=== PATIENT | male | born 1980 | race African-American/Black ===

== ENCOUNTER 2020-10-29 05:48 | Inpatient (IN) ==
[2020-10-29] MEDS ORDERED: ACETAMINOPHEN 325 MG TABLET PO PRN (08:56)
[2020-10-29] MEDS ORDERED: ONDANSETRON 4 MG/2 ML VIAL IV PRN (08:56)
[2020-10-29] MEDS ORDERED: ALBUTEROL 2.5 MG/3 ML NEB RESP TX PRN (08:56)
[2020-10-29] MEDS ORDERED: DEXTROSE 50% 25 GM/50 ML VIAL IV PRN (08:56)
[2020-10-29] MEDS ORDERED: DOCUSATE SODIUM 100 MG CAPSULE PO PRN (08:56)
[2020-10-29] MEDS ORDERED: GLUCAGON 1 MG VIAL IM PRN (08:56)
[2020-10-29 09:39] LABS: Basophils # 0.1 10*3/uL (0.0-0.2); Basophils % 0.5 % (0.0-0.8); Eosinophils # 0.3 10*3/uL (0.0-0.87); Eosinophils % 2.1 % (0.00-10.9); Hematocrit 43.3 VOL% (42.0-52.0); Hemoglobin 13.4 GM/DL (14.0-18.0); Immature Granulocytes % 0.5 %; Immature Granulocytes Absolute 0.06 #; Lymphocytes # 2.2 10*3/uL (1.4-4.0); Lymphocytes % 18.3 % (21.2-54.2); Mean Corpuscular HGB Conc 30.9 GM/DL (32-36); Mean Corpuscular Volume 99.5 FL (87-102); Mean Platelet Volume 12.5 FL (9.6-12.0); Monocytes % 8.4 % (1.7-12.7); Neutrophils % 70.2 % (38.7-73.9); Platelet Count 191 T/CUMM (130-400); Red Blood Count 4.35 MC/CUMM (3.8-5.5); Red Cell Distribution Width 12.7 % (9.3-17.3); White Blood Count 12.1 T/CUMM (4-12)
[2020-10-29 09:59] LABS: Albumin 3.4 G/DL (3.4-5.0); Bilirubin,Total 0.5 MG/DL (0.2-1.0); Calcium 9.9 MG/DL (8.5-10.1); Total Protein 8.3 G/DL (6.4-8.3)
[2020-10-29] MEDS: INSULIN GLARGINE 100 UNIT/ML SUBCUT SCH ×2 (10:01→22:00)
[2020-10-29] MEDS: PANTOPRAZOLE 40 MG TABLET PO SCH (10:01)
[2020-10-29] MEDS: SODIUM CHLORIDE 0.9% 1,000 ML IV SCH (10:06)
[2020-10-29] MEDS: ENOXAPARIN 40 MG/0.4 ML SYRINGE SUBCUT SCH (11:52)
[2020-10-29] MEDS: INSULIN LISPRO 100 UNIT/ML SUBCUT SCH ×3 (11:52→22:00)
[2020-10-29] MEDS: FLUCONAZOLE INJ 100 MG in IV BAG 1 EACH IV SCH (12:40)
[2020-10-29] MEDS: amLODIPine 10 MG TABLET PO SCH (13:40)
[2020-10-29] MEDS ORDERED: clonazePAM 0.5 MG TABLET PO PRN (14:35)
[2020-10-29] MEDS: BENZTROPINE 1 MG TABLET PO SCH (21:59)
[2020-10-29] MEDS: OMEGA 3 ACID ETHYL ESTERS 1 GM CAPSULE PO SCH (21:59)
[2020-10-29] MEDS: LITHIUM ER 300 MG TABLET PO SCH (21:59)
[2020-10-29] MEDS: HALOPERIDOL 5 MG TABLET PO SCH (22:00)
[2020-10-29] MEDS: CLOTRIMAZOLE 1% CREAM 15 GM TUBE TOP SCH (22:05)
[2020-10-30 05:58] LABS: Basophils % 0.4 % (0.0-0.8); Eosinophils # 0.3 10*3/uL (0.0-0.87); Eosinophils % 3.3 % (0.00-10.9); Hematocrit 38.5 VOL% (42.0-52.0); Hemoglobin 12.1 GM/DL (14.0-18.0); Immature Granulocytes % 0.4 %; Immature Granulocytes Absolute 0.04 #; Lymphocytes # 2.5 10*3/uL (1.4-4.0); Lymphocytes % 24.6 % (21.2-54.2); Mean Corpuscular HGB Conc 31.4 GM/DL (32-36); Mean Corpuscular Volume 96.7 FL (87-102); Mean Platelet Volume 12.8 FL (9.6-12.0); Monocytes % 7.2 % (1.7-12.7); Neutrophils % 64.1 % (38.7-73.9); Platelet Count 243 T/CUMM (130-400); Red Blood Count 3.98 MC/CUMM (3.8-5.5); Red Cell Distribution Width 12.3 % (9.3-17.3); White Blood Count 10.1 T/CUMM (4-12)
[2020-10-30 06:13] LABS: Calcium 9.3 MG/DL (8.5-10.1); Osmolality,Calculated 291.8 MOS/KG (273-304)
[2020-10-30] MEDS: SODIUM CHLORIDE 0.9% 1,000 ML IV SCH ×5 (06:33→20:47)
[2020-10-30] MEDS: amLODIPine 10 MG TABLET PO SCH (08:29)
[2020-10-30] MEDS: OMEGA 3 ACID ETHYL ESTERS 1 GM CAPSULE PO SCH ×2 (08:29→20:46)
[2020-10-30] MEDS: LITHIUM ER 300 MG TABLET PO SCH ×2 (08:29→20:47)
[2020-10-30] MEDS: PANTOPRAZOLE 40 MG TABLET PO SCH (08:29)
[2020-10-30] MEDS: HALOPERIDOL 5 MG TABLET PO SCH ×2 (08:29→20:47)
[2020-10-30] MEDS: BENZTROPINE 1 MG TABLET PO SCH ×2 (08:29→20:47)
[2020-10-30] MEDS: INSULIN LISPRO 100 UNIT/ML SUBCUT SCH ×4 (08:30→20:46)
[2020-10-30] MEDS: INSULIN GLARGINE 100 UNIT/ML SUBCUT SCH ×2 (08:30→20:45)
[2020-10-30] MEDS: CLOTRIMAZOLE 1% CREAM 15 GM TUBE TOP SCH (08:32)
[2020-10-30] MEDS: FLUCONAZOLE INJ 100 MG in IV BAG 1 EACH IV SCH (12:31)
[2020-10-30] MEDS: ENOXAPARIN 40 MG/0.4 ML SYRINGE SUBCUT SCH (12:31)
[2020-10-31] MEDS: CLOTRIMAZOLE 1% CREAM 15 GM TUBE TOP SCH ×2 (02:56→08:57)
[2020-10-31] MEDS: SODIUM CHLORIDE 0.9% 1,000 ML IV SCH ×2 (04:48→08:58)
[2020-10-31 06:41] LABS: Basophils % 0.4 % (0.0-0.8); Eosinophils # 0.3 10*3/uL (0.0-0.87); Eosinophils % 3.2 % (0.00-10.9); Hematocrit 35.6 VOL% (42.0-52.0); Hemoglobin 11.4 GM/DL (14.0-18.0); Immature Granulocytes % 0.6 %; Immature Granulocytes Absolute 0.06 #; Lymphocytes # 2.7 10*3/uL (1.4-4.0); Lymphocytes % 26.8 % (21.2-54.2); Mean Platelet Volume 11.9 FL (9.6-12.0); Monocytes % 8.2 % (1.7-12.7); Neutrophils % 60.8 % (38.7-73.9); Platelet Count 258 T/CUMM (130-400); Red Blood Count 3.67 MC/CUMM (3.8-5.5); Red Cell Distribution Width 12.3 % (9.3-17.3); White Blood Count 10.1 T/CUMM (4-12)
[2020-10-31 07:22] LABS: Alanine Aminotransferase 39 U/L (16-61); Albumin 2.4 G/DL (3.4-5.0); Alkaline Phosphatase 143 U/L (45-117); Aspartate Amino Transferase 32 U/L (0-37); Bilirubin,Direct < 0.100 MG/DL (0.0-0.20); Bilirubin,Indirect 1.3 MG/DL (0.0-1.0); Blood Urea Nitrogen 5 MG/DL (7-18); Calcium 9.2 MG/DL (8.5-10.1); Estimated Glom Filtration Rate 114 ML/MIN; Glucose 198 MG/DL (74-106); Osmolality,Calculated 292.6 MOS/KG (273-304); Total Protein 6.2 G/DL (6.4-8.3)
[2020-10-31] MEDS ORDERED: POTASSIUM CHLORIDE 20 MEQ TABLET PO ONE (08:30)
[2020-10-31] MEDS: LITHIUM ER 300 MG TABLET PO SCH (08:56)
[2020-10-31] MEDS: OMEGA 3 ACID ETHYL ESTERS 1 GM CAPSULE PO SCH (08:56)
[2020-10-31] MEDS: BENZTROPINE 1 MG TABLET PO SCH (08:57)
[2020-10-31] MEDS: INSULIN LISPRO 100 UNIT/ML SUBCUT SCH ×2 (08:57→11:44)
[2020-10-31] MEDS: INSULIN GLARGINE 100 UNIT/ML SUBCUT SCH (08:57)
[2020-10-31] MEDS: PANTOPRAZOLE 40 MG TABLET PO SCH (08:57)
[2020-10-31] MEDS: HALOPERIDOL 5 MG TABLET PO SCH (08:57)
[2020-10-31 10:00] LABS: Hepatitis B Core IgM Quant 0.18 Index; Hepatitis B Surface Ag Quant < 0.10 Index; Hepatitis B Surface Ag Result Negative (Negative); Hepatitis C Virus Ab Quant 0.08 Index; Hepatitis C Virus Ab Result Negative (Negative)
[2020-10-31] MEDS: FLUCONAZOLE INJ 100 MG in IV BAG 1 EACH IV SCH (11:00)
[2020-10-31] MEDS: ENOXAPARIN 40 MG/0.4 ML SYRINGE SUBCUT SCH (11:04)
[2020-10-31 11:41] VITALS: BP 139/91
== END 2020-10-31 13:36 | disposition home health service (06) | DRG 638 ==
LOC: SUATTDRO 08:16 → N.ICU 08:16 → N.3E 17:45
PROVIDERS: ADMIT Internal Medicine; ATTEND Internal Medicine